=== PATIENT | female | born 1995 | race Caucasian/White ===

== ENCOUNTER 2020-01-14 14:26 | Emergency (ER) | payer OTHER ==
[~2020-01-14] VITALS: Ht 157.5 cm; Wt 79.4 kg
[2020-01-14 14:33] VITALS: BP 121/75
[2020-01-14] MEDS ORDERED: LIDOCAINE 1% HCL (LOCAL ANESTH.) INJ 20ML MDV IJ ONE (16:30)
== END 2020-01-14 17:01 | disposition home or self-care (01) ==
LOC: ER 14:26
DX: S81.812A Laceration without foreign body, left lower leg, initial encounter (principal); W26.0XXA Contact with knife, initial encounter; Y93.E5 Activity, floor mopping and cleaning; Y92.090 Kitchen in other non-institutional residence as the place of occurrence of the external cause; Y99.8 Other external cause status
CPT/HCPCS: 12002; 99283; J2001

== ENCOUNTER 2021-02-08 08:35 | Inpatient (IN) | payer OTHER ==
[~2021-02-08] VITALS: Ht 30.5 cm; Wt 0.5 kg
[2021-02-08] MEDS ORDERED: WITCH HAZEL-GLYCERIN PAD TOP PRN (08:45)
[2021-02-08] MEDS ORDERED: BUTORPHANOL TARTRATE 2 MG/1 ML VIAL IV PRN ×2 (08:45)
[2021-02-08] MEDS ORDERED: LACTATED RINGER'S 1,000 ML IV SCH (08:45)
[2021-02-08] MEDS ORDERED: PROMETHAZINE HCL 25 MG/ML 1ML IV PRN (08:45)
[2021-02-08] MEDS ORDERED: LIDOCAINE 2%HCL (LOCAL ANESTH.) INJ 20ML MDV IJ PRN (08:45)
[2021-02-08] MEDS ORDERED: PHISODERM TOP SOLN 240ML BTL TOP PRN (08:45)
[2021-02-08] MEDS ORDERED: DERMOPLAST 60ML BOTTLE TOP PRN (08:45)
[2021-02-08] MEDS ORDERED: LACT. RINGERS/OXYTOCIN 20UNITS 500 ML IV ONE ×2 (09:00→09:30)
[2021-02-08] MEDS ORDERED: miSOPROStol 100 mcg TAB PR ONE (09:00)
[2021-02-08] MEDS ORDERED: METHYLERGONOVINE MALEATE 0.2 MG/ML AMP IM PRN (09:00)
[2021-02-08] MEDS ORDERED: CARBOPROST TROMETHAMINE 250 MCG/1ML VIAL IM ONE (09:00)
[2021-02-08] MEDS ORDERED: miSOPROStol 100 mcg TAB SL ONE (09:00)
[2021-02-08 09:29] LABS: Basophils # (auto) 0 10 ^3/uL (0-0.2); Basophils % (auto) 0.3 % (0.0-2.0); Eosinophils # (auto) 0.2 10 ^3/uL (0-0.8); Eosinophils % (auto) 1.7 % (0.0-7.0); Hematocrit 40.6 % (36.0-46.0); Hemoglobin 13.9 g/dL (12.2-16.2); Lymphocytes % (auto) 25.5 % (10.0-50.0); Mean Corpuscular Hgb Conc. 34.3 g/dL (32.0-36.0); Mean Corpuscular Volume 90.4 fL (80.0-100.0); Monocytes # (auto) 0.8 10 ^3/uL (0-1.3); Monocytes % (auto) 6.7 % (0.0-12.0); Neutrophils # (auto) 7.6 10 ^3/uL (1.6-8.6); Neutrophils % (auto) 65.8 % (37.0-80.0); Nucleated Red Blood Cells % 0.1 %; Red Blood Cells 4.49 10^6/uL (4.0-5.20); Red Cell Distribution Width 14.2 % (11.8-14.3); White Blood Cell 11.6 10^3/uL (4.4-10.8)
[2021-02-08 09:30] LABS: Urine Bacteria NONE SEEN /hpf (None Seen); Urine Blood Negative /uL (Negative); Urine Specific Gravity 1.011 (1.001-1.035); Urine WBC 1 /hpf (0 - 5)
[2021-02-08 09:46] LABS: Albumin 2.8 g/dL (3.4-5.0); Alcohol, Urine < 3.0 mg/dL (0-10); Amphetamine Screen, Urine NEGATIVE (NEGATIVE); Barbiturate Scree,Urine NEGATIVE (NEGATIVE); Benzodiazephine Screen, Urine NEGATIVE (NEGATIVE); Calcium 8.8 mg/dL (8.5-10.1); Cannabinoid Screen, Urine NEGATIVE (NEGATIVE); Cocaine Screen, Urine NEGATIVE (NEGATIVE); Opiate Scree,Urine NEGATIVE (NEGATIVE); Phencyclidine Screen, Urine NEGATIVE (NEGATIVE); Potassium 3.2 mmol/L (3.5-5.1)
[2021-02-08 09:50] LABS: BUN/Creatinine Ratio 8.3; Bilirubin, Total 0.9 mg/dL (0.2-1.0); Total Protein 7.2 g/dL (6.4-8.2)
[2021-02-08 10:16] LABS: INR 1.04 (0.9-1.15); Partial Thromboplastin Time 27.3 sec (23.6-33.0)
[2021-02-08] MEDS ORDERED: IBUPROFEN 600 MG TAB PO PRN (12:15)
[2021-02-08] MEDS ORDERED: ACETAMINOPHEN 325 MG TAB PO PRN (12:15)
[2021-02-08 15:11] VITALS: BP 118/69
[2021-02-08 19:30] VITALS: BP 123/70
[2021-02-08 23:00] VITALS: BP 134/80
[2021-02-09 03:00] VITALS: BP 95/56
[2021-02-09 07:03] VITALS: BP 93/54
[2021-02-09 07:07] LABS: RPR Non Reactive (Non Reactive)
[2021-02-09] MEDS ORDERED: PREN-96 PO (10:14)
[2021-02-09 10:59] VITALS: BP 110/66
== END 2021-02-09 14:05 | disposition home or self-care (01) | DRG 807 ==
LOC: LDRP 08:35 → OBSVTOIN 08:45
PROVIDERS: ADMIT Obstetrics & Gynecology; ATTEND Obstetrics & Gynecology
PROC: 10E0XZZ Delivery of Products of Conception, External Approach (ICD-10-PCS; principal; 2021-02-08)
PROC: 0KQM0ZZ Repair Perineum Muscle, Open Approach (ICD-10-PCS; 2021-02-08)
PROC: 10907ZC Drainage of Amniotic Fluid, Therapeutic from Products of Conception, Via Natural or Artificial Opening (ICD-10-PCS; 2021-02-08)
DX: O62.3 Precipitate labor (principal); Z37.0 Single live birth; O70.1 Second degree perineal laceration during delivery; Z3A.40 40 weeks gestation of pregnancy; Z20.822 Contact with and (suspected) exposure to COVID-19
CPT/HCPCS: 36415; 59025; 59409; 80053; 80307; 81001; 81002; 85025; 85610; 85730; 86592; 86703; 86762; 86850; 86900; 86901; 87340; 87426; 94760; 96365; 96366; G0378; J2590